=== PATIENT | female | born 1955 | race African-American/Black ===

== ENCOUNTER 2018-01-26 11:08 | Emergency (ER) | payer MEDICARE ==
[~2018-01-26] VITALS: Ht 167.6 cm; Wt 100.2 kg
[~2018-01-26 11:08] MED LIST: ALEVE220 M1 PO; LORTAB 7.5-3251 TAB PO; METFORMIN500 M1 PO; NAPROSYN500 MG PO; TIZANIDINE4 MG PO
[2018-01-26] MEDS ORDERED: NITRO-BID2.5 M1 PO (11:31)
[2018-01-26] MEDS ORDERED: NITROSTAT0.4 MG SL (11:33)
[2018-01-26] MEDS ORDERED: GABAPENTIN100 MG PO (11:38)
[2018-01-26] MEDS ORDERED: CITALOPRAM HYDR10 MG PO (11:42)
[2018-01-26] MEDS ORDERED: ASPIRIN 8181 MG PO (11:45)
[2018-01-26] MEDS ORDERED: VITAMIN D2000 UNI1 PO (11:46)
[2018-01-26] MEDS ORDERED: MULTI VIT PO (11:49)
[2018-01-26] MEDS ORDERED: LIPITOR40 M1 PO (11:50)
[2018-01-26] MEDS ORDERED: GLIPIZIDE5 M2 PO (11:51)
[2018-01-26] MEDS ORDERED: HYZAAR1 TA1 PO (11:51)
[2018-01-26] MEDS ORDERED: ISOSORB MONO30 MG PO (11:51)
[2018-01-26] MEDS ORDERED: IBUPROFEN600 MG PO (11:55)
[2018-01-26 12:05] VITALS: BP 117/73
== END 2018-01-26 12:05 | disposition home or self-care (01) ==
LOC: ED 11:08
DX: S86.912A Strain of unspecified muscle(s) and tendon(s) at lower leg level, left leg, initial encounter (principal); M17.12 Unilateral primary osteoarthritis, left knee; E11.9 Type 2 diabetes mellitus without complications; I10 Essential (primary) hypertension; X50.9XXA Other and unspecified overexertion or strenuous movements or postures, initial encounter; Y93.01 Activity, walking, marching and hiking; Z86.73 Personal history of transient ischemic attack (TIA), and cerebral infarction without residual deficits